=== PATIENT | male | born 1990 | race Caucasian/White ===

== ENCOUNTER 2017-12-31 05:41 | Emergency (ER) | payer BC ==
[~2017-12-31] VITALS: Ht 172.7 cm; Wt 60.4 kg
[2017-12-31 06:43] LABS: HEMATOCRIT 38.7 % (38.0-50.0); HEMOGLOBIN 13.3 G/DL (12.5-16.6); MCH 30.6 PG (29.0-34.0); MCHC 34.4 G/DL (30.0-36.0); PLATELET COUNT 222 K/uL (156-360); RBC DIS.WIDTH-CV 12.5 % (11.8-14.6); RBC DIS.WIDTH-SD 41.1 % (39-53); RED BLOOD COUNT 4.35 M/uL (4.00-5.50); WHITE BLOOD COUNT 9.2 K/uL (4.1-10.2)
[2017-12-31 06:56] LABS: ALBUMIN 4.3 g/dL (3.2-4.8); CHLORIDE 105 mEq/L (99-109); POTASSIUM 3.8 mEq/L (3.7-5.4); SODIUM 142 mEq/L (136-147)
[2017-12-31 06:58] LABS: GLUCOSE 112 mg/dL (70-99); TOTAL PROTEIN 6.7 g/dL (6.4-8.3)
[2017-12-31 07:00] LABS: TOTAL BILIRUBIN 0.7 mg/dL (0.0-1.0)
[2017-12-31 07:02] LABS: ALKALINE PHOSPHATASE 58 IU/L (3-129); CREATININE 1.2 mg/dL (0.6-1.3); GFR ESTIMATE (CALCULATED) > 59 mL/min/ (58.99-99999)
[2017-12-31 07:03] LABS: UREA NITROGEN (BUN) 22 mg/dL (9-23)
[2017-12-31 07:04] LABS: AST (GOT) 16 IU/L (2-34)
[2017-12-31 07:05] LABS: ALT (GPT) 14 IU/L (3-49)
[2017-12-31 09:29] LABS: APPEARANCE CLEAR ((CLEAR)); BILIRUBIN NEGATIVE; BLOOD LARGE; COLOR YELLOW ((YELLOW)); GLUCOSE (STRIP) NEGATIVE; KETONES 80; LEUKOCYTES NEGATIVE; NITRITE NEGATIVE; PROTEIN (STRIP) 100; SPECIFIC GRAVITY 1.021 (1.000-1.030); UROBILINOGEN 0.2 MG/DL (0.2-1.0)
[2017-12-31 09:32] LABS: BACTERIA RARE /HPF; EPITHELIAL CELLS NONE SEEN /HPF; MUCUS TRACE /LPF; RED BLOOD CELLS TNTC /HPF (0-5); UCUL ADDED? YES; WHITE BLOOD CELLS 0-5 /HPF (0-5)
[2017-12-31] MEDS ORDERED: ZOFRAN4 MG PO (09:54)
[2017-12-31] MEDS ORDERED: PERCOCET 5/31 TABLET PO (09:54)
[2017-12-31] MEDS ORDERED: FLOMAX0.4 MG PO (09:54)
[2017-12-31] MEDS ORDERED: TORADOL10 MG PO (10:04)
[2017-12-31 10:13] VITALS: BP 107/68
== END 2017-12-31 10:24 | disposition home or self-care (01) ==
LOC: EME 05:41
DX: N13.4 Hydroureter (principal); N20.1 Calculus of ureter
CPT/HCPCS: 74176; 80053; 81003; 85027; 87086; 99281; 99284; J1885; J2405; J7030